=== PATIENT | male | born 1980 | race Caucasian/White ===

== ENCOUNTER → 2017-03-19 | Day surgery (SDC) | payer OTHER ==
[~2017-03-19] MED LIST: CIPRO500 MG PO; FENTANYL CITRATE/PF 100MCG/2 ML INJ ONE; FLAGYL250 MG PO; HYOSCYAMINE SULFATE 0.5 MG/ML AMP ONE; LIDOCAINE HCL 2% LOCAL INJ 5 ML SDV VIAL INJ ONE; MIDAZOLAM HCL 2 MG/2 ML VIAL ONE; PANTOPRAZOLE SO40 MG PO; PROPOFOL IV EMULSION 10 MG/ML 50 ML VIAL ONE; XANAX0.25 MG PO
[2017-03-19 17:37] LABS: WBC,FECAL (FECAL LACTOFERRIN) NEGATIVE (NEGATIVE)
--- NOTE | 2017-03-19 18:00 | Operative Report ---
DATE OF PROCEDURE: March 19, 2017 REFERRING PHYSICIAN: Dr. Alverto Diaz. PROCEDURE PERFORMED: Esophagogastroduodenoscopy with biopsies and a colonoscopy with polypectomy and biopsies. INDICATIONS FOR ESOPHAGOGASTRODUODENOSCOPY: Dysphagia. History of heartburn and indigestion. INDICATIONS FOR COLONOSCOPY: Diarrhea, intermittent history of bright red blood per rectum. MEDICATION: Patient was done under MAC. Please see anesthesiologist's note. PROCEDURE: With patient in the lateral decubitus position, flexible fiberoptic Olympus gastroscope was introduced into the esophagus under direct visualization without any difficulty. There was some patchy erythema noted in distal esophagus. A mild stricture was noted at the GE junction that was dilated to a size 52-Czech Oliver. The scope was then advanced with ease into the stomach. Mucosa overlying the antrum and the body revealed some patchy erythema and low-grade edema and biopsies were obtained and sent to stain for H. pylori. The pylorus was of normal contour and shape. Was intubated with ease and the scope was advanced all the way to the 2nd portion of the duodenum. The scope was then withdrawn slowly and biopsies were obtained from the proximal 2nd portion to rule out sprue considering patient's history of diarrhea. Mucosa overlying the duodenal bulb appeared to be within normal limits. The scope was then withdrawn back into the stomach and retroflexed and the mucosa overlying the fundus and the cardia appeared to be within normal limits. The scope was then straightened out. The stomach was decompressed. Scope was subsequently withdrawn. Patient tolerated the procedure well. IMPRESSION: 1. Distal esophagitis. 2. Esophageal stricture at gastroesophageal junction dilated to size 52-Czech Oliver. 3. Gastritis biopsied. Biopsy sent stain for H. pylori. 4. Rule out sprue. PLAN: Follow up histology. Initiate Protonix 40 mg 1 p.o. q.a.m. a.c. PROCEDURE: Patient was then turned around and after adequate lubrication of the anal canal a flexible fiberoptic Olympus colonoscope was inserted into the rectum with ease and advanced all the way to the cecum. Mucosa overlying the cecum appeared to be within normal limits. The ileocecal valve was intubated and the scope was advanced into the terminal ileum. Biopsies were obtained from the terminal ileum. The scope was then withdrawn back into the colon. There was scattered diverticular disease throughout. One polyp was snared from the ascending colon. The transverse grossly appeared to be within normal limits. The left colon revealed some patchy mild inflammatory changes including the rectum and multiple random biopsies were obtained. One polyp was snared from the sigmoid colon. The scope was then retroflexed into the distal rectum and small internal hemorrhoids were noted, none of which was actively bleeding. The scope was then straightened out. The rectosigmoid area as well as the distal rectal area were decompressed. Scope was subsequently withdrawn after securing an adequate stool specimen that was sent for the appropriate stool studies. Patient tolerated the procedure well. IMPRESSION 1. Pandiverticulosis. 2. Ascending colon polyp snared. 3. Sigmoid colon polyp snared. 4. Mild patchy left-sided colitis. 5. Mild proctitis. 6. Internal hemorrhoids none, actively bleeding. PLAN: Follow up histology. Follow up stool studies. Initiate Bentyl 10 mg one p.o. t.i.d. VSL#3 DS one p.o. b.i.d. The patient will need a followup colonoscopy in 3 years. Job#: [id number] cc:ALVERTO DIAZ MD
[2017-03-20 15:17] LABS: C DIFFICILE TOXIN A&B AMP PROB NEGATIVE (NEGATIVE)
== END | disposition home or self-care (01) ==
LOC: OR 12:57
PROVIDERS: ATTEND Internal Medicine Gastroenterology
DX: K22.2 Esophageal obstruction (principal); D12.2 Benign neoplasm of ascending colon; D12.5 Benign neoplasm of sigmoid colon; K29.70 Gastritis, unspecified, without bleeding; K51.50 Left sided colitis without complications; K59.00 Constipation, unspecified; K20.9 Esophagitis, unspecified; K21.9 Gastro-esophageal reflux disease without esophagitis; K57.30 Diverticulosis of large intestine without perforation or abscess without bleeding; K62.89 Other specified diseases of anus and rectum; K64.8 Other hemorrhoids; R63.4 Abnormal weight loss; F41.9 Anxiety disorder, unspecified
CPT/HCPCS: 43239; 43450; 45380; 45385; 83630; 83993; 87045; 87177; 87328; 87493; J1980; J2001; J2250

== ENCOUNTER → 2017-08-18 | Outpatient (CLI) | payer OTHER ==
[~2017-08-18] MED LIST changes: -FENTANYL CITRATE/PF 100MCG/2 ML INJ ONE; -HYOSCYAMINE SULFATE 0.5 MG/ML AMP ONE; -LIDOCAINE HCL 2% LOCAL INJ 5 ML SDV VIAL INJ ONE; -MIDAZOLAM HCL 2 MG/2 ML VIAL ONE; -PROPOFOL IV EMULSION 10 MG/ML 50 ML VIAL ONE
--- NOTE | 2017-08-18 13:11 | Diagnostic Imaging Report ---
PROCEDURE:US RETROPERITONEAL ( KIDNEY ). COMPARISON:Patients [facility], CT, CT ABDOMEN/PELVIS W, 01/28/2017, 12:20. INDICATIONS:Left Renal Cyst. TECHNIQUE:Ultrasound examination was performed of the kidneys and bladder. FINDINGS: RIGHT KIDNEY:12.4 cm in length. Mildly prominent column of Flex versus duplicated collecting system no. No hydronephrosis, masses or shadowing calculi. Normal cortical echogenicity. LEFT KIDNEY:12.3 cm in length. No hydronephrosis or shadowing calculi. Anechoic lesion exophytic of the lower pole measures 1.5 x 1.2 x 1.5 cm, consistent with a simple cyst. Normal cortical echogenicity. BLADDER:Normal. OTHER:Hepatic steatosis incidentally noted. CONCLUSION: 1.5 CM SIMPLE CYST EXOPHYTIC OFF THE LOWER POLE OF THE LEFT KIDNEY. Mikey GANT M.D. DICTATED BY: Mikey GANT M.D. ON 08/18/2017 AT 13:13 ELECTRONICALLY APPROVED BY: Mikey GANT M.D. ON 08/18/2017 AT 13:13
== END ==
LOC: US 10:44
PROVIDERS: ATTEND Family Medicine
DX: N28.1 Cyst of kidney, acquired (principal)
CPT/HCPCS: 76770

== ENCOUNTER 2017-11-25 22:02 | Emergency (ER) | payer OTHER ==
[~2017-11-25] VITALS: Ht 177.8 cm; Wt 79.4 kg
[2017-11-25] MEDS ORDERED: LORAZEPAM INJ 2 MG/ML VIAL IM ONE (23:00)
[2017-11-26] MEDS ORDERED: HYDROCODONE/APAP 5MG-325MG TAB PO PRN (01:00)
== END 2017-11-25 23:50 | disposition home or self-care (01) ==
LOC: FSED 22:02
DX: F41.1 Generalized anxiety disorder (principal)
CPT/HCPCS: 99283; J2060

== ENCOUNTER → 2018-09-23 | Day surgery (SDC) | payer OTHER ==
[~2018-09-23] MED LIST changes: +DIGESTIVE ENZYME PO; +FENTANYL CITRATE/PF 100MCG/2 ML INJ ONE; +FISH OIL 1,0001 EAC2 PO; +HYOSCYAMINE 0.125 MG TAB ONE; +MIDAZOLAM HCL 2 MG/2 ML VIAL ONE; +MULTI-VITAMIN1 EACH PO; +PROPOFOL IV EMULSION 10 MG/ML 50 ML VIAL ONE; +VIT B PO; +VIT D PO
--- OUTSIDE RECORDS SUMMARY | 2018-09-23 11:29 | XMS REPORT | Clinical Summary ---
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 Active PARoxetine (PAXIL) 10 MG Take 5 mg by 0 tablet mouth every morning. Active ALPRAZolam (XANAX) 0.25 Take 0.25 mg 0 MG tablet by mouth as needed for anxiety. Active pantoprazole (PROTONIX) Take 40 mg by 0 40 MG EC tablet mouth as needed. Active dicyclomine (BENTYL) 10 Take 10 mg by 0 MG capsule mouth as needed. 11/05/2017 acetaminophen-codeine Take 1 tablet 20 tablet 0 (TYLENOL WITH CODEINE #3) by mouth 8 300-30 mg per tablet every 6 (six) hours as needed for moderate pain for up to 5 days. Active Problems Problem Noted Date Appendicitis 10/30/2017 Chronic left-sided low back pain with left-sided sciatica 04/15/2016 Herniated lumbar intervertebral disc 04/15/2016 Encounters Care Team Description Date Type Specialty Jerel Thao MD 10/30/2017 Anesthesia General Surgery Event Grant Arevalo MD APPENDECTOMY, LAPAROSCOPIC 10/30/2017 Surgery General Surgery Alek Nova DO Acute appendicitis, unspecified acute appendicitis type (Primary Dx) 10/30/2017 Hospital General Surgery - Encounter 10/31/2017 after 09/22/2017 Social History Date Tobacco Use Types Packs/Day Years Used 05/28/1995 - 04/26/2013 Former Smoker Cigarettes 1 18 Smokeless Tobacco: Snuff, Chew Current User Alcohol Use Drinks/Week oz/Week Comments Yes 2 Glasses of wine 2 Cans of beer Sex Assigned at Date Recorded Not on file Industry Job Start Date Occupation Not on file Not on file Not on file Travel End Travel History Travel Start No recent travel history available. Last Filed Vital Signs Time Taken Vital Sign Reading 10/31/2017 7:07 AM CDT Blood Pressure 109/62 10/31/2017 7:07 AM CDT Pulse 64 10/31/2017 7:07 AM CDT Temperature 36.7 C (98 F) 10/31/2017 7:07 AM CDT Respiratory Rate 18 10/31/2017 7:07 AM CDT Oxygen Saturation 95% - Inhaled Oxygen - Concentration 10/30/2017 5:36 PM CDT Weight 86.1 kg (189 lb 13.1 oz) 10/30/2017 5:36 PM CDT Height 177.8 cm (5' 10") 10/30/2017 5:36 PM CDT Body Mass Index 27.24 Plan of Treatment Health Maintenance Due Date Last Done Comments INFLUENZA VACCINE 10/27/2018 Implants Device Identifier Shelf Expiration Date Model / Serial / Lot Implanted Type 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 [id number] / / Matrix [employer] Floseal 5ml W/ Humn F2 Surgical N/A: N/A BLANCO - [id number] Implants; BIOSCIENCE Implanted: Qty: 1 on 05/13/2016 by Lee; Juan Li MD Extenders; Surgical Wires Procedures Comments Procedure Name Priority Date/Time Associated Diagnosis ZZESTIMATED GFR Routine 10/31/2017 4:40 AM CDT COMPREHENSIVE METABOLIC Routine 10/31/2017 PANEL 4:40 AM CDT CBC WITH PLATELET AND Routine 10/31/2017 DIFFERENTIAL 4:40 AM CDT SURGICAL PATHOLOGY Routine 10/30/2017 REQUEST 5:16 PM CDT SD AN ELECTIVE Routine 10/30/2017 ENDOTRACHEAL AIRWAY 4:51 PM CDT Procedure Note - Jerel Thao MD - 10/30/2017 4:51 PM CDT Airway Date/Time: 10/30/2017 4:36 PM Performed by: JEREL THAO Authorized by: JEREL THAO Location: OR Urgency: Elective Difficult Airway: No Anesthesio logist: JEREL THAO Performed by: anesthesio logist Preoxygena kristina with 100% O2: Yes C-spine Precaution s Maintained Throughout : Yes Mask Ventilatio n: Easy mask Final Airway Type: Endotrache al airway Final Endotrache al Airway: ETT Cuffed: Yes Technique Used: Direct laryngosco py Devices/Me thods Used in Placement: Intubatin g stylet Insertion Site: Oral Blade Type: Milian ETT Size (mm): 7.5 Cuff at minimum occlusion pressure: Yes Measured from: Gums ETT to Gums (cm): 23 Placement Verified by: CO2 detection, direct visualizat ion and equal breath sounds Laryngosco pic view: Grade IIa - partial view of glottis Rapid Sequence Induction (RSI): No Modified RSI: No Number of Attempts at Approach: 1 APPENDECTOMY, 10/30/2017 appendicitis LAPAROSCOPIC 4:00 PM CDT after 09/22/2017 Results * Estimated GFR (10/31/2017 4:40 AM CDT) Pathologist [facility] GFR Non Af Amer 83 mL/min/1.[address] [facility] DEPARTMENT OF PATHOLOGY AND GENOMIC MEDICINE GFR Af Amer >90 mL/min/1.[address] [facility] Comment: DEPARTMENT OF Chronic kidney disease: <60 PATHOLOGY AND mL/min/1.73m2 GENOMIC Kidney failure: <15 MEDICINE mL/min/1.73m2 The estimated GFR is calculated from the IDMS-traceable Modification of Diet in Renal Disease Equation. The accuracy of the calculation is poor when the creatinine is normal. Calculated values >90 mL/min/1.73m2 are not reported. This equation has not been validated in children (<18 years), women, the elderly (>70 years), or ethnic groups other than Caucasians and Americans. Specimen Plasma specimen Performing Organization Address City/State/Zipcode Phone Number [facility] [place] [address] [place] [address] PATHOLOGY AND GENOMIC MEDICINE * CBC with platelet and differential (10/31/2017 4:40 AM CDT) Pathologist [facility] WBC 12.63 (H) 4.50 - 11.00 k/uL [facility] DEPARTMENT OF PATHOLOGY AND GENOMIC MEDICINE RBC 4.53 4.40 - 6.00 m/uL [facility] DEPARTMENT OF PATHOLOGY AND GENOMIC MEDICINE HGB 13.6 (L) 14.0 - 18.0 g/dL [facility] DEPARTMENT OF PATHOLOGY AND GENOMIC MEDICINE HCT 40.2 (L) 41.0 - 51.0 % [facility] DEPARTMENT OF PATHOLOGY AND GENOMIC MEDICINE MCV 88.7 82.0 - 100.[address] [facility] DEPARTMENT OF PATHOLOGY AND GENOMIC MEDICINE MCH 30.0 27.0 - 34.[address] [facility] DEPARTMENT OF PATHOLOGY AND GENOMIC MEDICINE MCHC 33.8 31.0 - 37.0 g/dL [facility] DEPARTMENT OF PATHOLOGY AND GENOMIC MEDICINE RDW - SD 42.8 37.0 - 55.[address] [facility] DEPARTMENT OF PATHOLOGY AND GENOMIC MEDICINE MPV 8.9 8.8 - 13.[address] [facility] DEPARTMENT OF PATHOLOGY AND GENOMIC MEDICINE Platelet count 277 150 - 400 k/uL [facility] DEPARTMENT OF PATHOLOGY AND GENOMIC MEDICINE Nucleated RBC 0.00 /[address] [facility] DEPARTMENT OF PATHOLOGY AND GENOMIC MEDICINE Neutrophils 87.5 (H) 39.0 - 69.0 % [facility] DEPARTMENT OF PATHOLOGY AND GENOMIC MEDICINE Lymphocytes 7.4 (L) 25.0 - 45.0 % [facility] DEPARTMENT OF PATHOLOGY AND GENOMIC MEDICINE Monocytes 4.6 0.0 - 10.0 % [facility] DEPARTMENT OF PATHOLOGY AND GENOMIC MEDICINE Eosinophils 0.0 0.0 - 5.0 % [facility] DEPARTMENT OF PATHOLOGY AND GENOMIC MEDICINE Basophils 0.1 0.0 - 1.0 % [facility] DEPARTMENT OF PATHOLOGY AND GENOMIC MEDICINE Specimen Blood Performing Organization Address City/State/Zipcode Phone Number [facility] [address] [place] [address] PATHOLOGY [facility] GENOMIC [facility] * Comprehensive metabolic panel (10/31/2017 4:40 AM CDT) Sodium 140 135 - 148 mEq/L [facility] DEPARTMENT OF PATHOLOGY AND GENOMIC MEDICINE Potassium 4.1 3.5 - 5.0 mEq/L [facility] DEPARTMENT OF PATHOLOGY AND GENOMIC MEDICINE Chloride 103 98 - 112 mEq/L [facility] DEPARTMENT OF PATHOLOGY AND GENOMIC MEDICINE CO2 25 24 - 31 mEq/L [facility] DEPARTMENT OF PATHOLOGY AND GENOMIC MEDICINE Anion gap 12@ANIO 7 - 15 mEq/L [facility] DEPARTMENT OF PATHOLOGY AND GENOMIC MEDICINE BUN 9 6 - 20 mg/dL [facility] DEPARTMENT OF PATHOLOGY AND GENOMIC MEDICINE Creatinine 1.0 0.7 - 1.2 mg/dL [facility] DEPARTMENT OF PATHOLOGY AND GENOMIC MEDICINE Glucose 153 (H) 65 - 99 mg/dL [facility] DEPARTMENT OF PATHOLOGY AND GENOMIC MEDICINE Calcium 9.0 8.3 - 10.2 mg/dL [facility] DEPARTMENT OF PATHOLOGY AND GENOMIC MEDICINE Protein 7.5 6.3 - 8.3 g/dL [facility] Comment: DEPARTMENT OF PATHOLOGY AND 4.6-7.0 g/dL GENOMIC 1 MEDICINE week 4.4-7.6 g/dL 7 months-1year 5.1-7.3 g/dL 1-2 years5.6-7 .5 g/dL >3 years6.0-8 .0 g/dL 18-150 6.3-8.3 g/dL Albumin 4.6 3.5 - 5.0 g/dL [facility] DEPARTMENT OF PATHOLOGY AND GENOMIC MEDICINE A/G ratio 1.6 0.7 - 3.[address] [facility] DEPARTMENT OF PATHOLOGY AND GENOMIC MEDICINE Alkaline 62 40 - 129 U/L [facility] phosphatase DEPARTMENT OF PATHOLOGY AND GENOMIC MEDICINE AST 71 (H) 10 - 50 U/L [facility] DEPARTMENT OF PATHOLOGY AND GENOMIC MEDICINE ALT 140 (H) 5 - 50 U/L [facility] DEPARTMENT OF PATHOLOGY AND GENOMIC MEDICINE Total bilirubin 0.6 0.0 - 1.2 mg/dL [facility] DEPARTMENT OF PATHOLOGY AND GENOMIC MEDICINE Specimen Plasma specimen Performing Organization Address City/[facility] Phone Number [facility] [place] [address] [facility] [place] [address] PATHOLOGY AND GENOMIC MEDICINE * Surgical pathology request (10/30/2017 5:16 PM CDT) [facility] DEPARTMENT OF PATHOLOGY AND GENOMIC MEDICINE Surgical See link below for PDF Lab [facility] pathology Report DEPARTMENT OF report PATHOLOGY AND GENOMIC MEDICINE Result status This is Final Report to [facility] [id number] DEPARTMENT OF PATHOLOGY AND GENOMIC MEDICINE Specimen Performing Organization Address City/[facility]/Zipcode Phone Number [facility] [place] [id number] [place] [address] [place] [address] PATHOLOGY AND GENOMIC MEDICINE after 09/22/2017 Insurance Type Payer Benefit Subscriber ID Effective Phone Address Plan / Dates Group HMO AETNA AETNA xxxxxxxxxx 2012- HMO,POS,EP Present O, MC/EC Advance Directives Patient has advance care planning documents on file. For more information, cruz osborne contact: Hira De La Rosa [address] [place] [address]
[2018-09-23 17:15] VITALS: BP 107/88
--- NOTE | 2018-09-23 20:56 | Operative Report ---
DATE OF PROCEDURE: 09/23/2018 SURGEON: Aly Mckee MD PROCEDURES: Colonoscopy and polypectomy. INDICATIONS FOR COLONOSCOPY: Surveillance colonoscopy, personal history of colon polyps. MEDICATION: The patient was done under MAC, please see anesthesiologist's note. PROCEDURE IN DETAIL: With the patient in left lateral decubitus position, flexible fiberoptic Olympus colonoscope was inserted into the rectum with ease and advanced all the way to the cecum. Diverticular disease was noted pretty much throughout the colon. Minute polyp was removed per cold biopsy forceps from the cecum. The scope was then withdrawn slowly and other than for diverticular disease, ascending, transverse, descending, sigmoid, and rectum appeared to be within normal limits. The scope was then retroflexed into the distal rectum and small internal hemorrhoids were noted, none of which was actively bleeding. The scope was then straightened out, it was subsequently withdrawn. The patient tolerated the procedure well. IMPRESSION: 1. Cecal polyp removed per cold biopsy forceps. 2. Pandiverticulosis. 3. Internal hemorrhoids, none actively bleeding. PLAN: Follow up histology. Initiate high-fiber, low-fat diet. Initiate high-fiber supplement. The patient might benefit from a followup colonoscopy in 5 years. Aly Mckee MD [facility] [place] /[id number] cc: Alverto Diaz MD
== END | disposition home or self-care (01) ==
LOC: OR 11:21
PROVIDERS: ATTEND Internal Medicine Gastroenterology
DX: K63.5 Polyp of colon (principal); K57.30 Diverticulosis of large intestine without perforation or abscess without bleeding; K64.8 Other hemorrhoids; F41.9 Anxiety disorder, unspecified; Z01.810 Encounter for preprocedural cardiovascular examination; Z68.27 Body mass index [BMI] 27.0-27.9, adult; Z80.0 Family history of malignant neoplasm of digestive organs
CPT/HCPCS: 45380; 93005; J2250; J2704; J3010

== ENCOUNTER 2020-04-29 01:53 | Emergency (ER) | payer OTHER ==
[~2020-04-29] VITALS: Ht 177.8 cm; Wt 83.9 kg
[~2020-04-29 01:53] MED LIST changes: -FENTANYL CITRATE/PF 100MCG/2 ML INJ ONE; -HYOSCYAMINE 0.125 MG TAB ONE; -MIDAZOLAM HCL 2 MG/2 ML VIAL ONE; -PROPOFOL IV EMULSION 10 MG/ML 50 ML VIAL ONE
[2020-04-29] MEDS ORDERED: KETOROLAC TROMETHAMINE 30 MG/ML VIAL IV STA (02:10)
[2020-04-29] MEDS ORDERED: ONDANSETRON HCL INJ 2MG/ML 2ML 2 MG/ML VIAL IV STA (02:14)
[2020-04-29] MEDS ORDERED: SODIUM CHLORIDE 0.9% 1000ML 1,000 ML IV SCH (02:15)
[2020-04-29] MEDS ORDERED: KETOROLAC TROMETHAMINE 30 MG/ML VIAL ONE (02:37)
[2020-04-29] MEDS ORDERED: SODIUM CHLORIDE 0.9% 1000ML 1,000 ML ONE (02:37)
[2020-04-29] MEDS ORDERED: ONDANSETRON HCL INJ 2MG/ML 2ML 2 MG/ML VIAL ONE (02:37)
[2020-04-29] MEDS ORDERED: ZOFRAN4 MG SL (03:39)
[2020-04-29] MEDS ORDERED: NAPROSYN500 MG PO (03:39)
[2020-04-29 03:48] VITALS: BP 118/76
== END 2020-04-29 03:48 | disposition home or self-care (01) ==
LOC: FSED 02:10
DX: R10.32 Left lower quadrant pain (principal); N28.1 Cyst of kidney, acquired; F41.9 Anxiety disorder, unspecified; K21.9 Gastro-esophageal reflux disease without esophagitis; F17.210 Nicotine dependence, cigarettes, uncomplicated
CPT/HCPCS: 74176; 80053; 81003; 85025; 96374; 96376; 99284; J1885; J2405; J7030

== ENCOUNTER 2021-12-03 00:38 | Emergency (ER) | payer OTHER ==
[~2021-12-03] VITALS: Ht 177.8 cm; Wt 83.9 kg
[~2021-12-03 00:38] MED LIST changes: +NAPROSYN500 MG PO; +ZOFRAN4 MG SL
[2021-12-03] MEDS ORDERED: ONDANSETRON HCL INJ 2MG/ML 2ML 2 MG/ML VIAL IV STA (01:29)
[2021-12-03] MEDS ORDERED: KETOROLAC TROMETHAMINE 30 MG/ML VIAL IV STA (01:29)
[2021-12-03] MEDS ORDERED: SODIUM CHLORIDE 0.9% 1000ML 1,000 ML IV STA (01:29)
[2021-12-03] MEDS ORDERED: ONDANSETRON HCL INJ 2MG/ML 2ML 2 MG/ML VIAL ONE (01:42)
[2021-12-03] MEDS ORDERED: SODIUM CHLORIDE 0.9% 1000ML 1,000 ML ONE (01:43)
[2021-12-03] MEDS ORDERED: KETOROLAC TROMETHAMINE 30 MG/ML VIAL ONE (01:44)
[2021-12-03] MEDS ORDERED: IOPAMIDOL 370 MG/ML 100 ML INFUS..BTL INJ ONE (01:49)
[2021-12-03] MEDS ORDERED: CIPRO500 MG PO (02:37)
[2021-12-03] MEDS ORDERED: METRONIDAZOLE500 MG PO (02:37)
[2021-12-03] MEDS ORDERED: CIPROFLOXACIN 500 MG TAB ONE (02:52)
== END 2021-12-03 03:00 | disposition home or self-care (01) ==
LOC: FSED 00:52
DX: R10.32 Left lower quadrant pain (principal); K57.92 Diverticulitis of intestine, part unspecified, without perforation or abscess without bleeding; K21.9 Gastro-esophageal reflux disease without esophagitis; F41.9 Anxiety disorder, unspecified
CPT/HCPCS: 74177; 80048; 80076; 85025; 99284; J1885; J2405; J7030; Q9967

== ENCOUNTER 2022-01-29 04:35 | Emergency (ER) | payer OTHER ==
[~2022-01-29] VITALS: Ht 177.8 cm; Wt 83.9 kg
[~2022-01-29 04:35] MED LIST changes: -LIDOCAINE HCL 2% LOCAL INJ 5 ML SDV VIAL INJ ONE; -MIDAZOLAM HCL 2 MG/2 ML VIAL ONE; -PROPOFOL IV EMULSION 10 MG/ML 20 ML VIAL ONE
[2022-01-29] MEDS ORDERED: LACTATED RINGER'S 1,000 ML ONE ×2 (05:09→05:10)
[2022-01-29] MEDS ORDERED: LACTATED RINGER'S 1,000 ML IV ONE (05:15)
== END 2022-01-29 05:13 | disposition home or self-care (01) ==
LOC: ER 05:03
DX: R25.2 Cramp and spasm (principal); R53.1 Weakness
CPT/HCPCS: 99283; J7121

== ENCOUNTER → 2022-01-29 | Day surgery (SDC) | payer OTHER ==
[~2022-01-29] MED LIST changes: +LIDOCAINE HCL 2% LOCAL INJ 5 ML SDV VIAL INJ ONE; +METRONIDAZOLE500 MG PO; +MIDAZOLAM HCL 2 MG/2 ML VIAL ONE; +PROPOFOL IV EMULSION 10 MG/ML 20 ML VIAL ONE
[2022-01-29 09:05] VITALS: BP 112/76
== END | disposition home or self-care (01) ==
LOC: OR 05:08
PROVIDERS: ATTEND Internal Medicine Gastroenterology
DX: K57.92 Diverticulitis of intestine, part unspecified, without perforation or abscess without bleeding (principal); D12.2 Benign neoplasm of ascending colon; K64.8 Other hemorrhoids; K21.9 Gastro-esophageal reflux disease without esophagitis; F41.9 Anxiety disorder, unspecified; F17.290 Nicotine dependence, other tobacco product, uncomplicated; Z88.1 Allergy status to other antibiotic agents; Z01.810 Encounter for preprocedural cardiovascular examination
CPT/HCPCS: 45385; 93005; J2001; J2704; 45378; J2250

== ENCOUNTER 2023-12-25 17:06 | Emergency (ER) | payer OTHER ==
[~2023-12-25] VITALS: Ht 177.8 cm; Wt 93.1 kg
[2023-12-25] MEDS ORDERED: XANAX0.5 MG PO (17:17)
[2023-12-25] MEDS ORDERED: ZOLOFT50 MG PO (17:17)
[2023-12-25] MEDS: ONDANSETRON HCL INJ 2MG/ML 2ML 2 MG/ML VIAL IV STA (17:34)
[2023-12-25] MEDS: KETOROLAC TROMETHAMINE 30 MG/ML VIAL IV STA (17:35)
[2023-12-25] MEDS ORDERED: IOPAMIDOL 370 MG/ML 100 ML INFUS..BTL INJ ONE (17:39)
[2023-12-25] MEDS ORDERED: DICYCLOMINE HCL20 MG PO (18:53)
[2023-12-25 19:21] VITALS: PULSE 62; RESP 16; TEMP 98.3; O2SAT 97
== END 2023-12-25 19:21 | disposition home or self-care (01) ==
LOC: FSED 17:08
DX: R10.12 Left upper quadrant pain (principal); R11.0 Nausea; K21.9 Gastro-esophageal reflux disease without esophagitis; F41.9 Anxiety disorder, unspecified; M54.9 Dorsalgia, unspecified; G89.29 Other chronic pain; Z87.19 Personal history of other diseases of the digestive system; F17.210 Nicotine dependence, cigarettes, uncomplicated
CPT/HCPCS: 74177; 80053; 85025; 96374; 96375; 99284; J1885; J2405; Q9967